=== PATIENT | female | born 1975 | race Caucasian/White ===

== ENCOUNTER 2016-09-22 10:52 | Day surgery (SDC) | payer BC, OTHER ==
[2016-09-18 11:42] VITALS: BMI 23.6
[~2016-09-22 10:52] MED LIST: CLINDAMYCIN 900 MG in DEXTROSE 5% IN WATER 50 ML IVPB ONE; DEXAMETHASONE SOD PHOSPHATE 10 MG/ML 1 ML VIAL IV ONE; HEPARIN SODIUM,PORCINE 5,000 UNIT/ML 1 ML VIAL SQ ONE; LACTATED RINGERS 1,000 ML IV SCH; LEVOFLOXACIN 500MG-D5W PMX 500 MG in DEXTROSE/WATER 1 100ML.BAG IVPB ONE; MIDAZOLAM 2 MG/2 ML VIAL IV PRN; SCOPOLAMINE 1.5MG/72HR PATCH TRANSDERM ONE
[2016-09-22] MEDS ORDERED: LACTATED RINGERS 1,000 ML IV ONE ×2 (11:07→12:59)
[2016-09-22] MEDS ORDERED: LIDOCAINE 1% 20 ML VIAL (10MG/ML) FOR IV START INTRADERMA ONE (11:14)
[2016-09-22] MEDS ORDERED: ONDANSETRON 4 MG/2 ML VIAL IVP ONE (11:15)
--- NOTE | 2016-09-22 11:59 | P.GSHP ---
History of Present Illness H&P Date: 09/22/16 Chief Complaint: Umbilical hernia Patient seen in the office in early July. The patient has complaints of a bulge present just at and above the umbilicus. For the last several months. Mild abdominal discomfort at that location at times particularly when its protruding. No nausea or vomiting. No change in bowel habits. no history of previous abdominal surgeries. Past Medical History Additional Past Medical History / Comment(s): HERNIA History of Any Multi-Drug Resistant Organisms: None Reported Past Surgical History: Uterine Ablation Additional Past Surgical History / Comment(s): MITRAL VALVE REPAIR. EGD. EYE SURGERY CHILD Past Anesthesia/Blood Transfusion Reactions: No Reported Reaction Past Psychological History: No Psychological Hx Reported Smoking Status: Never smoker Past Alcohol Use History: None Reported Past Drug Use History: None Reported - Past Family History Mother Family Medical History: No Reported History Medications and Allergies Home Medications Medication Instructions Recorded Confirmed Type No Known Home Medications [No 09/18/16 09/18/16 History Known Home Medications] Allergies Allergy/AdvReac Type Severity Reaction Status Date / Time Penicillins Allergy Anaphylaxis Verified 09/18/16 11:37 prochlorperazine Allergy Anaphylaxis Verified 09/18/16 11:37 [From Compazine] Surgical - Exam Vital Signs Temp Pulse Resp BP Pulse Ox 97.6 F 78 16 156/87 100 09/22/16 11:01 09/22/16 11:01 09/22/16 11:01 09/22/16 11:01 09/22/16 11:01 Physical exam: General: Well-developed, well-nourished HEENT: Normocephalic, sclerae nonicteric Abdomen: Nontender, nondistended, reducible umbilical hernia with possibly 2 fascial defects Extremities: No edema Neuro: Alert and oriented Assessment and Plan (1) Umbilical hernia Narrative/Plan: Will proceed with laparoscopic possible open repair using the da Zheng assistance. Mesh will be utilized. Risks of bleeding, infection, recurrence, pain, mesh infection, bowel injury or adhesions were discussed. She understands and wishes to proceed. Status: Acute
[2016-09-22] MEDS ORDERED: SUCCINYLCHOLINE CHLORIDE 100 MG/5 ML SYR IV ONE (12:00)
[2016-09-22] MEDS ORDERED: ROCURONIUM BROMIDE 10 MG/ML 10 ML VIAL IV ONE (12:00)
[2016-09-22] MEDS ORDERED: NEOSTIGMINE 1 MG/ML 10 ML VIAL ONE (12:00)
[2016-09-22] MEDS ORDERED: fentaNYL (PF) 50 MCG/ML 2 ML AMP ONE (12:00)
[2016-09-22] MEDS ORDERED: MIDAZOLAM 2 MG/2 ML VIAL ONE (12:00)
[2016-09-22] MEDS ORDERED: LIDOCAINE 1% INJ 10MG/ML (20 ML MDV) ONE (12:00)
[2016-09-22] MEDS ORDERED: PROPOFOL 10 MG/ML 20 ML VIAL IV ONE (12:00)
[2016-09-22] MEDS ORDERED: HYDROmorphone (PF) 1 MG/ML ONE (12:00)
[2016-09-22] MEDS ORDERED: KETOROLAC 30 MG/ML 1 ML VIAL ONE (12:00)
[2016-09-22] MEDS ORDERED: GLYCOPYRROLATE 0.2 MG/ML 2 ML VIAL ONE (12:00)
[2016-09-22] MEDS ORDERED: BUPIVACAIN-EPI 0.25%-1:200,000 30 ML VIAL SQ ONE (12:35)
[2016-09-22 14:13] VITALS: TEMP 97.8
[2016-09-22] MEDS ORDERED: HYDROcodone/APAP 5-325MG 1 EACH TAB PO PRN (14:20)
[2016-09-22] MEDS ORDERED: NALOXONE 0.4 MG/ML 1 ML VIAL IV PRN (14:20)
[2016-09-22] MEDS: HYDROmorphone 1 MG/ML 1 ML SYRINGE IVP PRN ×2 (14:23→14:40)
--- NOTE | 2016-09-22 14:24 | P.PCN ---
Date of Procedure: 09/22/16 Procedure(s) Performed: PREOPERATIVE DIAGNOSIS: Umbilical hernia POSTOPERATIVE DIAGNOSIS: Same PROCEDURE: Laparoscopic repair local hernia with da Zheng robotic assistance with mesh SURGEON: Steph EBL: 5 Osvaldo ANESTHESIA: Gen. COMPLICATIONS: None OPERATIVE PROCEDURE: Patient was placed on the operating room table in the supine position. Patient was then placed under general anesthesia. The abdomen was prepped and draped in usual sterile fashion. A 5 mm optical trocar was used to enter the abdominal cavity in the left subcostal location and laterally. Insufflation took place fully to 15 mm of mercury. At that point a 12 mm trocar was placed laterally in the mid abdomen. An 8 mm trocar was placed in the left lower quadrant. The initial 5 was then switched to an 8 mm trocar as well. All of these were placed under direct visualization. The trochars were placed so that the neutral center of the trocar was within the abdominal wall. The da Zheng robot was then docked after placing the patient in a slight right decubitus position. I then left the bedside and moved to the da Zheng console. The patient's hernia was inspected. In this particular case the patient had a single defect measuring approximately 1.5-2 cm at the umbilicus. The peritoneum and a portion of the hernia sac was excised circumferentially and centrally as well. The defect was then closed vertically using a running 9 inch O v lock suture. An 11 cm circular mesh was then utilized. This was a ventral light ST mesh. This was sutured circumferentially using 2-0 V lock sutures. This was performed in a running fashion using 3 separate sutures. The middle portion of the mesh was also sutured to the abdominal wall. This provided excellent coverage of our fascial closure. We then switched to a traditional laparoscopic approach. The 4 needles were removed at that point. The defect at the 12 mm trocar site was closed using an 0 Vicryl suture and the Santiago Le technique. The skin at all 3 sites were closed using interrupted 4-0 Monocryl sutures. Steri-Strips and sterile dressings were applied. DISPOSITION: Stable to recovery room
[2016-09-22 15:24] VITALS: RESP 16
[2016-09-22 16:10] VITALS: BP 121/79; PULSE 97
== END 2016-09-22 16:45 | disposition home or self-care (01) ==
LOC: OR 10:52
PROVIDERS: ATTEND Surgery
DX: K42.9 Umbilical hernia without obstruction or gangrene (principal); Z88.0 Allergy status to penicillin; Z88.8 Allergy status to other drugs, medicaments and biological substances
CPT/HCPCS: 49652; S2900